=== PATIENT | female | born 1995 | race Caucasian/White ===

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

== ENCOUNTER 2018-08-31 08:26 | Emergency (ER) | payer OTHER ==
[2018-08-31 08:32] VITALS: BP 125/82
[2018-08-31] MEDS ORDERED: ALBUTEROL 3 ML DEYVIAL IH ONE (09:07)
--- NOTE | 2018-08-31 09:09 | EDPHY ---
H & P Smoking Status: Current some day smoker Time Seen by Provider: 08/31/18 08:52 HPI/ROS: CLINICAL IMPRESSION: Viral URI with cough, mild asthma exacerbation ASSESSMENT/PLAN: 23-year-old female with past medical history of asthma presents to the emergency department 24 hr of increased chest tightness associated with URI symptoms and cough. Vital signs stable, no hypoxia or respiratory distress. Lungs are clear on initial and repeat evaluations. She received an albuterol neb with subjective improvement in her symptoms. No clinical signs of bacterial URI or lower respiratory illness. Supportive care at home encouraged. I provided a spacer for her to use with her albuterol inhaler. Follow up with PCP in 24-48 hours. Warning signs return to ED sooner outlined discharge. DIFFERENTIAL DX: Differential diagnosis includes but not limited to viral URI, asthma exacerbation, influenza, other viral syndrome ED COURSE: 9:30 a.m.:. Patient reassessed after albuterol neb, reports she is now feeling better. Would like to be discharged home. No clinical signs of hypoxia, respiratory distress, or bacterial URI or lower respiratory infection. Will plan to discharge with a spacer to use with her inhaler. CHIEF COMPLAINT: Chest cold HPI: 23-year-old female with past medical history of a neurologic disease causing spastic paraplegia presents to the emergency department with 24 hr of chest tightness and congestion. No associated fever, chills, myalgias. She also has an underlying history of asthma and take steroid inhalers and albuterol only as needed. She began taking these last night. She reports increased chest tightness this morning. No underlying cardiac disease. She did get a flu shot this year. No or GI symptoms. No rash. She has had ill exposure to her sister and believes this is how she got sick. PAST MEDICAL HISTORY: Inherited neurological disease causing spastic paraplegia , intermittent mild asthma, PTSD, depression Pertinent Past Surgical History: Cyst removal in forehead Family History: Noncontributory Social History: Smokes medical marijuana ROS: A full 10 point review of systems was negative except for those mentioned in HPI. PHYSICAL EXAM: General Appearance: Alert, oriented, appropriate, cooperative, NAD, well hydrated, non-toxic appearing, VSS, no hypoxia. HEENT: TMs are clear bilaterally no perforation or FB, no injection, no evidence of serous or mucopurulent otitis. Oropharynx clear is no erythema or exudates, no tonsillar hypertrophy or asymmetry. Dentition without abnormality. Eyes: PERRLA, no acute vision change, nystagmus, swelling, discharge, pain or photosensitivity. Conjunctiva pink, no pallor or injection Neck: Supple, nontender, no lymphadenopathy, no midline pain, FROM, no meningismus. Respiratory: There are no retractions, lungs are clear to auscultation. Cardiac: Regular rate and rhythm, no murmurs or gallops. Gastrointestinal: Abdomen is soft, nontender, bowel sounds normal, no masses/ hernia, no rigidity, guarding or focal peritoneal findings. Skin: Warm, dry, no rashes, no nodules on palpation. MEDICAL DECISION MAKING: Patient was seen independently. Secondary supervising physician at time of evaluation was Dr. Hill . Diagnosis: Viral URI with cough, asthma exacerbation. New, requires workup Summary: See Assessment and Plan for summary of ED visit Patient Progress: Improved. (Raaz Trinidad) Constitutional: Initial Vital Signs Temperature (C) 36.4 C 08/31/18 08:29 Heart Rate 76 08/31/18 08:29 Respiratory Rate 18 08/31/18 08:29 Blood Pressure 125/82 H 08/31/18 08:29 O2 Sat (%) 99 08/31/18 08:29 O2 Delivery Mode Room Air Allergies/Adverse Reactions: No Known Allergies Allergy (Verified 08/31/18 08:27) Home Medications: Medication Instructions Recorded Prozac 40 mg 04/26/16 Wellbutrin 100mg (*) 04/26/16 Baclofen 05/14/16 Makenzie 1.5 mg-30 Mcg Tablet 05/14/16 PRILOSEC 05/14/16 Tolterodine Tartrate 05/14/16 GABAPENTIN 400 mg PO 11/23/16 Albuterol 08/31/18 MDM/Departure - MDM Medications Given: Discontinued Medications Albuterol (Proventil Neb) 3 ml IH EDNOW ONE Stop: 08/31/18 09:08 Last Admin: 08/31/18 09:12 Dose: 3 ml ED Course/Re-evaluation: The patient was evaluated and managed by the Physician Tetryl Dissolver Operator. I discussed the patient's presentation and course with the physician construction administrative assistant and agree with the evaluation. My co-signature indicates that I have reviewed this chart and I agree with the findings and plan of care as documented. I am the secondary supervising physician. (Bushra Hill) - Depart Disposition: Home, Routine, Self-Care Clinical Impression: Viral URI with cough Asthma exacerbation Qualifiers: Asthma severity: mild Asthma persistence: unspecified Qualified Code(s): J45.901 - Unspecified asthma with (acute) exacerbation Condition: Good Instructions: Bronchospasm (ED) Additional Instructions: DISCHARGE INSTRUCTIONS FROM YOUR DOCTOR Thank you for visiting our emergency department today. Please keep in mind that discharge from the emergency department does not mean that there is nothing wrong - it simply means that we have not identified an emergency condition that requires further evaluation or treatment in the hospital. You should always plan to follow up with primary care for re-evaluation of your condition in the next 2-3 days. If you have been referred to a specialist, please call as soon as possible (today or tomorrow) to schedule your follow up appointment at the appropriate time. We gave you a spacer to use with your albuterol inhaler every 4-6 hours as needed. Please continue to use her inhaler for the next several days until you are feeling better. Drink plenty of fluids. Rest at home. Use Tylenol or ibuprofen if needed for fever. Return to the emergency department for severe cough, trouble breathing or wheezing, chest pain, inability to stay hydrated, high fevers, severe chills, or any other concern. Please follow up with a primary care doctor in the next 24-48 hours. If you do not have one we provided a referral. People present with illnesses and injuries in different ways, and it is always possible that we have missed something. You may always return for re-evaluation if symptoms worsen or if they are not improving or if you develop new/different symptoms. Again, thank you for choosing our emergency department. We hope that you feel better. Referrals: Sakshi Chen PA [Primary Care Provider] - 1-2 days without fail
== END 2018-08-31 09:44 | disposition home or self-care (01) ==
DX: J06.9 Acute upper respiratory infection, unspecified (principal); J45.901 Unspecified asthma with (acute) exacerbation
CPT/HCPCS: J7613